=== PATIENT | male | born 1975 | race Caucasian/White ===

== ENCOUNTER 2017-07-23 05:34 | Emergency (ER) | payer SELFPAY ==
[~2017-07-23] VITALS: Ht 160 cm; Wt 59.0 kg
[2017-07-23 07:08] VITALS: BP 133/89
== END 2017-07-23 07:18 | disposition home or self-care (01) ==
LOC: ER 05:34
DX: R21 Rash and other nonspecific skin eruption (principal); L29.9 Pruritus, unspecified; F17.210 Nicotine dependence, cigarettes, uncomplicated
CPT/HCPCS: 99283

== ENCOUNTER 2019-08-17 11:51 | Emergency (ER) | payer SELFPAY ==
[~2019-08-17] VITALS: Ht 160 cm; Wt 60.0 kg
[2019-08-17 11:54] VITALS: BP 140/85
[2019-08-17] MEDS ORDERED: PREDNISONE 20MG TABLET PO ONE (13:15)
[2019-08-17] MEDS ORDERED: DIPHENHYDRAMINE 25MG CAPSULE PO ONE (13:15)
[2019-08-17] MEDS ORDERED: FAMOTIDINE 20MG TABLET PO ONE (13:15)
== END 2019-08-17 13:55 | disposition home or self-care (01) ==
LOC: ER 11:51
DX: L53.9 Erythematous condition, unspecified (principal); R21 Rash and other nonspecific skin eruption; L40.9 Psoriasis, unspecified; F17.200 Nicotine dependence, unspecified, uncomplicated
CPT/HCPCS: 99283; Q0163; J7512

== ENCOUNTER 2020-04-04 17:31 | Emergency (ER) | payer SELFPAY ==
[~2020-04-04] VITALS: Ht 160 cm; Wt 60.0 kg
[2020-04-04] MEDS ORDERED: SODIUM CHLORIDE 0.9% 1,000 ML IV ONE (18:27)
[2020-04-04 18:38] LABS: BASOPHILS % 0.7 % (0.0-2.0); EOSINOPHILS % 5.3 % (0.0-5.0); HEMATOCRIT. 43.5 % (42.0-52.0); LYMPHOCYTES % 36.3 % (20.0-50.0); MEAN CORPUSCULAR HEMOGLOBIN 30.1 pg (28.0-32.0); MEAN CORPUSCULAR VOLUME 87.2 fL (80.0-94.0); MEAN PLATELET VOLUME 7.8 fl (7.4-10.4); MONOCYTES % 6.7 % (2.0-8.0); PLATELET 234 x1000/uL (130-400); RED BLOOD CELL COUNT 4.99 mill/uL (4.7-6.1); RED CELL DISTRIBUTION WIDTH 13.2 % (11.6-14.6)
[2020-04-04 18:40] LABS: CLARITY URINE CLEAR (CLEAR); COLOR URINE YELLOW (YELLOW); KETONES URINE NEGATIVE (NEGATIVE); LEUKOCYTE ESTERASE URINE NEGATIVE (NEGATIVE); NITRITE URINE NEGATIVE (NEGATIVE); OCCULT BLOOD URINE 2+ (NEGATIVE); PROTEIN URINE NEGATIVE (NEGATIVE); SPECIFIC GRAVITY URINE 1.018 (1.005-1.030); UROBILINOGEN URINE 0.2 E.U./dL (0.2-1.0)
[2020-04-04 18:43] LABS: CHLORIDE 108 mEq/L (98-107)
[2020-04-04 18:48] LABS: ETHANOL BLOOD 79 mg/dL
[2020-04-04 18:51] LABS: *BENZODIAZEPINES SCREEN URINE NEGATIVE (NEGATIVE); *COCAINE SCREEN URINE NEGATIVE (NEGATIVE); METHADONE URINE SCREEN NEGATIVE (NEGATIVE); OPIATES URINE SCREEN NEGATIVE (NEGATIVE); PHENCYCLIDINE URINE SCREEN NEGATIVE (NEGATIVE)
[2020-04-04 18:52] LABS: *AMPHETAMINES SCREEN URINE NEGATIVE (NEGATIVE); *BARBITURATES SCREEN URINE NEGATIVE (NEGATIVE); CANNABINOID URINE SCREEN NEGATIVE (NEGATIVE)
[2020-04-04 20:30] VITALS: BP 129/88
[2020-04-04] MEDS ORDERED: IOHEXOL-300 100 ML BOTTLE ONE (20:51)
== END 2020-04-04 21:59 | disposition home or self-care (01) ==
LOC: ER 17:31
DX: K40.90 Unilateral inguinal hernia, without obstruction or gangrene, not specified as recurrent (principal); F10.10 Alcohol abuse, uncomplicated; L40.9 Psoriasis, unspecified; R53.1 Weakness; M79.672 Pain in left foot; M79.671 Pain in right foot; R42 Dizziness and giddiness; N50.89 Other specified disorders of the male genital organs; R10.30 Lower abdominal pain, unspecified; R00.0 Tachycardia, unspecified; F17.200 Nicotine dependence, unspecified, uncomplicated; Y90.3 Blood alcohol level of 60-79 mg/100 ml
CPT/HCPCS: 36415; 70450; 74177; 76870; 80053; 80305; 80320; 81003; 83690; 84484; 85025; 85610; 93005; 93976; 96360; 99285; J7030; Q9967; G0480